=== PATIENT | male | born 1995 | race Caucasian/White ===

== ENCOUNTER 2024-11-15 19:04 | Emergency (ER) | payer BC, OTHER, SELFPAY ==
[2024-11-15 20:00] VITALS: BP 122/77; PULSE 84; RESP 20; TEMP 36.6; O2SAT 100; BMI 19.0
--- OUTSIDE RECORDS SUMMARY | 2024-11-15 20:02 | XMS_ITS | Clinical Summary ---
Author Organization [facility] Address [address] [place] [address] Care Team Providers Care Back Up Worker Name Role Phone Celestina Smalls M.D., Kush Zavaleta Primary Care Provi [facility] Source Comments [facility] is fully rolled out with thefollowing exceptions:General Clinical Research [facility] Allergies No known active allergies Medications No known medications Active Problems Problem Noted Date Diagnosed Date Varicocele 05/23/2015 Hematuria 05/23/2015 Left groin pain 05/23/2015 General abdominal pain-symptom 03/04/2008 Voiding pain 03/04/2008 Family History Medical History Relation Name Comments Cancer Maternal Aunt Heart Problems Maternal Grandfather High Blood Pressure Maternal Grandfather High Blood Pressure Maternal Grandmother Heart Problems Mother High Blood Pressure Paternal Grandfather Anemia Paternal Grandmother High Blood Pressure Paternal Grandmother Relation Name Status Comments Father Alive Maternal Aunt Alive Maternal Grandfather Alive Maternal Grandmother Alive Mother Alive Paternal Grandfather Alive Paternal Grandmother Alive Sister Alive Social History Tobacco Use Types Packs/Day Years Used Date Smoking Tobacco: Some Days Sex and Gender Information Value Date Recorded Sex Assigned at Not on file Legal Sex Male 5:29 AM EST Gender Identity Not on file Sexual Orientation Not on file Last Filed Vital Signs Vital Sign Reading Time Taken Comments Blood Pressure 118/68 05/23/2015 10:05 AM EST Pulse 56 05/23/2015 10:05 AM EST Temperature - - Respiratory Rate - - Oxygen Saturation - - Inhaled Oxygen Concentration - - Weight 55.8 kg (123 lb 0.3 oz) 05/23/2015 10:05 AM EST Height 139.6 cm (4' 6.96 ) 05/27/2008 9:50 AM ES T Body Mass Index - - Plan of Treatment Health Maintenance Due Date Last Done Comments MMR IMMUNIZATION (1 of 1 - S tandard series) 11/15/1995 DTAP/Tdap/Td IMMUNIZATION (1 - Tdap) 2001 VARICELLA IMMUNIZATION (1 of 2 - 13+ 2-dose series) 11/15/2007 HEPATITIS B IMMUNIZATION (1 of 3 - 19+ 3-dose series) 2013 COVID-19 Vaccine ( - 2023-2 5 season) 2023 AMB SEASONAL FLU VACCINE (#1) 12/27/2024 HIB IMMUNIZATION Aged Out No longer e ligible based on patient's age to complete this topic HPV IMMUNIZATION Aged Out No longer e ligible based on patient's age to complete this topic IPV IMMUNIZATION Aged Out No longer e ligible based on patient's age to complete this topic MCV4 IMMUNIZATION Aged Out No longer eligible based on patient's age to complete this topic MENINGOCOCCAL B VACCINE Aged Out No l onger eligible based on patient's age to complete this topic PNEUMOCOCCAL IMMUNIZATION Aged Out No longer eligible based on patient's age to complete this topic Respiratory Syncytial Virus (RSV) <20mo Aged Out No longer eligible b ased on patient's age to complete this topic Insurance [employer] NON-TRADITIONAL Care Teams Back Up Worker Relationship Specialty Start Date End Date Kush Oscar Jr., M.D. [facility] [address] [place] [address] PCP - General 02/24/08
--- OUTSIDE RECORDS SUMMARY | 2024-11-15 20:02 | XMS_ITS | Clinical Summary ---
[facility] Address [address] [place] [address] Care Team Providers Care Representative Phlebotomy Services Name Role Phone Elier Morales MD Primary Care Provider [phone] Allergies No known active allergies Social History Tobacco Use Types Packs/Day Years Used Date Smoking Tobacco: Never Assessed Abuse Screen Answer Date Recorded Unsafe at Home or Work/School Not on file Feels Threatened by Someone? Not on file 02/2023 Does Anyone Keep You from Co ntacting Others or Doint Things Outside the Home? Not on file 02/05/2023 Physical Sign of Abuse Present Not on file 1 Housing Stability Answer Date Recorded Current Living Arrangements Not on file 01/26 Potentially Unsafe Housing Conditions Not on betty e 02/05/2023 Family and Community Support Answer Tee e Recorded Help with Day-to-Day Activities Not on file 02/05/2023 Lonely or Isolated Not on file 02/05/2023 Employment Answer Date Recorded Do you want help finding or keeping work or a latha b? Not on file 02/05/2023 Disabilities Answer Date Recorded Concentrating, Remembering, or Making Decisions Difficulty Not on file 02/05/2023 Doing Errands Independently Difficulty Not on fi le 02/05/2023 Education Answer Date Recorded Help with school or training? Not on file Preferred Language Not on file 02/05/2023 Sex and Gender Information Value Date Recorded Sex Assigned at Not on file Legal Sex Male 1:17 PM EDT Gender Identity Not on file Sexual Orientation Not on file Last Filed Vital Signs Vital Sign Reading Time Taken Comments Blood Pressure 122/82 01/21/2017 9:25 AM EDT Pulse - - Temperature 36.9 C (98.4 F) 01/21/2017 9:25 AM EDT Respiratory Rate - - Oxygen Saturation 98% 01/21/2017 9:25 AM EDT Inhaled Oxygen Concentration - - Weight - - Height - - Body Mass Index - - Plan of Treatment Health Maintenance Due Date Last Done Comments TDAP/TD VACCINES (1 - Tdap) 2013 ANNUAL PHYSICAL 01/21/2017 HEPATITIS C SCREENING 01/21/2017 COVID-19 Vaccine ( - 2023-2 5 season) 2023 INFLUENZA VACCINE 01/26/2025 Pneumococcal Vaccine 0-49 Aged Out No longer eligible based on patient's age to complete this topic Insurance PPO Care Teams Representative Phlebotomy Services Relationship Specialty Start Date End Date Elier Morales MD [address] [facility] [address] [place] [address] PCP - General Adolescent Medicine 01/17/17
--- OUTSIDE RECORDS SUMMARY | 2024-11-15 20:02 | XMS_ITS | Clinical Summary ---
Author Organization [facility] [place] [place] [address] Care Team Providers Care Residential Real Estate Assistant Name Role Phone Unavailable Primary Care Provider Unavailabl e Social History Tobacco Use Types Packs/Day Years Used Date Smoking Tobacco: Never Assessed Sex and Gender Information Value Date Recorded Sex Assigned at Not on file Legal Sex Male 8:46 AM EDT Gender Identity Not on file Sexual Orientation Not on file Plan of Treatment Health Maintenance Due Date Last Done Comments Annual Wellness Exam 1997 DTaP/TDaP/Td (1 - Tdap) 2013 Hepatitis B Vaccine (1 of 3 - 19+ 3-dose series) 2013 COVID-19 Vaccine (2023-2 5 season) 2023 Influenza Vaccine (#1) 2024 Meningococcal B Vaccine Aged Out No l onger eligible based on patient's age to complete this topic Pneumococcal Vaccine 0-49 Aged Out No longer eligible based on patient's age to complete this topic
--- OUTSIDE RECORDS SUMMARY | 2024-11-15 20:02 | XMS_ITS | Clinical Summary ---
Author Organization [facility] Address [address] [place] [address] Care Team Providers Care Tilt Wall Supervisor Name Role Phone Elier Morales MD Primary Care Provider [phone] Family History Medical History Relation Name Comments Cardiac disorder Other Relation Name Status Comments Other Social History Tobacco Use Types Packs/Day Years Used Date Smoking Tobacco: Passive Smo ke Exposure - Never Smoker Sex and Gender Information Value Date Recorded Sex Assigned at Not on file Legal Sex Male 7:42 PM EDT Gender Identity Not on file Sexual Orientation Not on file Last Filed Vital Signs Vital Sign Reading Time Taken Comments Blood Pressure - - Pulse - - Temperature - - Respiratory Rate - - Oxygen Saturation - - Inhaled Oxygen Concentration - - Weight 52 kg (114 lb 10.2 oz) 01/11/2014 10:57 A M EDT Height 168.4 cm (5' 6.3 ) 01/11/2014 10:57 AM ED T Body Mass Index 18.34 01/11/2014 10:57 AM EDT Plan of Treatment Not on file Care Teams Tilt Wall Supervisor Relationship Specialty Start Date End Date Elier Morales MD [address] [place] [address] PCP - General 09/08/20
--- NOTE | 2024-11-15 20:37 | ED_ITS ---
<Statement entered by Corey Byrd MD - 11/16/24 13:51> I was consulted by the KAYDEN, and we discussed the complexity of the problems being addressed. I approved the treatment and management plan for this patient's care in the emergency department, thus performing a substantive portion of the medical decision making. Corey Byrd MD Discharge Plan Disposition Patient Disposition: Home, Self-Care Condition: Good Prescriptions Prescriptions: No Action cetirizine [Zyrtec] 10 mg tablet 10 mg PO DAILY PRN Referrals Follow up/Referrals: Pedro Cole II, MD [Staff Physician, Gastroenterology] - See instructions Flora Dukes APRN [Primary Care Provider, Medical] - See instructions Activity Restrictions/Add. Instructions Additional Instructions/Restrictions: As we discussed please follow the disimpaction sheet and then once you have done that start taking MiraLAX 1 capful a day. I referred you back to Dr. Cole. Please call tomorrow to make your appointment. If you have any new or worsening signs or symptoms please return to the ER as needed. Clinical Impressions Clinical Impression: Bright red blood per rectum Instructions Patient Instructions: DI for Gastrointestinal Bleeding Print Language Print Language: Sinhala Discharge ED Provider: Corey Byrd General Adult HPI General Chief complaint: GI Bleed Stated complaint: bloody stool Time Seen by Provider: 11/15/24 20:02 Mode of Arrival: Ambulatory Source of Information: Patient Description of Symptoms (Recalled from ER Triage Doc. by RN): patient c/o rectal bleeding x2 today. patient states it was bright red. denies history. History of Present Illness HPI narrative: Patient presents for evaluation of bright red blood per rectum. Patient states that he had a bowel movement this morning and noted bright red blood in the toilet. He actually has no pain in the rectum or the abdomen. He has not had any other bleeding since. Patient states he does have fairly hard stools and has had for a long time. Patient's mother who is present with him states that had an anal fissure previously when he was a child. Patient denies fever chills hemoptysis hematochezia melena hematemesis. Related Data Home Medications ?Medication ?Instructions ?Recorded ?Confirmed cetirizine 10 mg tablet (Zyrtec) 10 mg PO DAILY PRN 10/02/23 Allergies Allergy/AdvReac Type Severity Reaction Status Date / Time No Known Allergies Allergy Verified 10/02/23 14:14 [facility] Disclaimer: The information contained in this section may have been updated after the patient was seen, as this information can be updated by other users. Medical History (Updated 11/15/24 @ 21:00 by ASHELY Ramirez) Heart murmur Surgical History (Updated 10/02/23 @ 14:18 by Ann Marie Esparza MA) Hx of appendectomy Social History Smoking Status: Never smoker alcohol intake: never current occupational status: employed Travel in the last 8 weeks?: None housing: house Have you lived/traveled outside US in past 30 days?: No Contact w/someone who lives/traveled outside US past 30 days?: No Exposure to someone with infectious disease in past 14 days?: No Do you have a fever (greater than 100.4 F or 38 C)?: No Have you tested positive for COVID-19?: No Exposed to someone with COVID-19 in past 14 days?: No Do you have a sore throat?: No Do you have a cough?: No Do you have any weakness?: No Do you have any diarrhea?: No Are you experiencing any unusual bleeding?: No Do you have any muscle aches/pain?: No Do you have any abdominal pain?: No Are you experiencing loss of taste or smell?: No Other Medical History Have you received the Pneumonia Vaccine: No ROS Obtained: Yes Systems reviewed as appropriate & no additional complaints except as documented Physical Exam General General appearance: alert and in no apparent distress Respiratory Respiratory exam: Present normal lung sounds bilaterally Cardiovascular Cardiovascular exam: Present regular rate Neurological Exam Neurological exam: Present alert and oriented X3 Medical Decision Making Medical Records Medical records reviewed: Yes I reviewed the patient's medical records. Screening: Per USPSTF and CDC recommendations, given the prevalence of disease in our region, it is our hospital?s policy to screen for HIV and viral Hepatitis for all patients aged 18 and over and those with ongoing risk factors. Dylan Inquiry Pt receiving controlled substance: No Vital Signs: 11/15/24 20:00 11/15/24 21:07 Temperature 98 F 98.1 F Temperature Source Oral Oral Pulse Rate 89 Pulse Rate [Left] 84 Respiratory Rate 20 20 Blood Pressure 120/71 Blood Pressure [Right Arm] 122/77 Blood Pressure Mean [Right Arm] 92 Blood Pressure Source Automatic Cuff Blood Pressure Source [Right Arm] Automatic Cuff Blood Pressure Position Sitting Blood Pressure Position [Right Arm] Sitting 02 Sat by Pulse Oximetry 100 Oxygen Delivery Method Room Air Room Air Medical Decision Narrative: In summary patient is a 29-year-old male who presents to the emergency department for evaluation of bright red blood per rectum. Patient is hemodynamically stable upon arrival, afebrile. Physical exam is remarkable for normal external rectal exam but patient does have a pile that is not enlarged or engorged from likely previous hemorrhoid. Patient has a severalg mucosal tears in the anterior aspect of the rectal ring along with some dried blood but no active bleeding currently. Digital rectal exam reveals however no muscle tear or palpable internal hemorrhoids.. Differential diagnosis includes constipation with defecation trauma versus possible internal hemorrhoid. Initial workup was considered with labs and imaging however patient has no red flags to indicate alternative diagnosis so they were not pursued.. Given this I went over recommendations for bowel disimpaction and then bowel softening regimen. Patient verbalized understanding and agreement. Patient will be referred to gastroenterology for ongoing management care. Patient given strict return precautions. Critical Care Critical Care Time Critical Care Time: No
[2024-11-15 21:07] VITALS: BP 120/71; PULSE 89; RESP 20; TEMP 36.7; O2SAT 100
--- NOTE | 2024-11-15 21:08 | PC.NURSE ---
IV discontinued. Catheter tip intact. Bleeding controlled.
== END 2024-11-15 21:08 | disposition home or self-care (01) ==
PROVIDERS: Emergency Provider Emergency Medicine; PCP Nurse Practitioner
DX: K62.5 Hemorrhage of anus and rectum (principal)
CPT/HCPCS: 99283

== ENCOUNTER 2024-11-22 11:41 | Outpatient (CLI) | payer BC, OTHER, SELFPAY ==
[2024-11-22 17:14] LABS: Hematocrit 42.7 % (42.0-52.0); Hemoglobin 13.8 g/dL (14.1-18.0); Immature Granulocytes % 0.3 %; Mean Corpuscular HGB Conc 32.3 g/dL (31.8-35.4); Mean Corpuscular Hemoglobin 27.2 pg (27.0-31.2); Mean Corpuscular Volume 84.2 fl (80-94); Nucleated Red Blood Cells % 0 %; Platelet Count 214 K/mm3 (142-424); Red Blood Count 5.07 M/mm3 (4.60-6.20); Red Cell Distribution Width-SD 38.1 fL; White Blood Count 3.8 K/mm3 (4.8-10.8)
[2024-11-22 19:39] LABS: Hepatitis C Ab Qual. W/ RFX NEGATIVE (Negative)
[2024-11-23 05:33] LABS: Hepatitis B Surface Antigen Negative (Negative)
--- OUTSIDE RECORDS SUMMARY | 2024-11-23 12:31 | XMS_ITS | Clinical Summary ---
Author Organization [facility] Address [address] [place] [address] Care Team Providers Care Bench Assembler Operator Name Role Phone Celestina Smalls M.D., Kush Zavaleta Primary Care Provi [facility] Source Comments [facility] is fully rolled out with thefollowing exceptions:General Clinical Research [facility] Allergies No known active allergies Medications No [...] topic Insurance [employer] NON-TRADITIONAL Care Teams Bench Assembler Operator Relationship Specialty Start Date End Date Kush Oscar Jr., M.D. [facility] [address] [place] [address] PCP - General 02/24/08
--- OUTSIDE RECORDS SUMMARY | 2024-11-23 12:31 | XMS_ITS | Clinical Summary ---
Author Organization [facility] [place] [address] Care Team Providers Care University Demonstrator Name Role Phone Unavailable Primary Care Provider [...]
--- OUTSIDE RECORDS SUMMARY | 2024-11-23 12:31 | XMS_ITS | Clinical Summary ---
Author Organization [facility] Address [address] [place] [address] Care Team Providers Care Mixer Foam Rubber Name Role Phone Elier Morales MD Primary Care Provider [phone] Family History Medical History Relation Name Comments [...] of Treatment Not on file Care Teams Mixer Foam Rubber Relationship Specialty Start Date End Date Elier Morales MD [address] [place] [address] PCP - General 09/08/20
--- OUTSIDE RECORDS SUMMARY | 2024-11-23 12:31 | XMS_ITS | Clinical Summary ---
[facility] Organization [facility] Address [address] [place] [address] Care Team Providers Care Butcher'S Assistant Name Role Phone Elier Morales MD Primary Care Provider [phone] Allergies No known active allergies Social History [...] complete this topic Insurance PPO Care Teams Butcher'S Assistant Relationship Specialty Start Date End Date Elier Morales MD [address] [facility] [address] [place] [address] PCP - General Adolescent Medicine 01/17/17
== END 2024-11-22 23:59 | disposition home or self-care (01) ==
LOC: LAB.DROPOF 11-23 12:29
PROVIDERS: PCP Family Medicine; Visit Provider Family Medicine
DX: K62.5 Hemorrhage of anus and rectum (principal); Z11.59 Encounter for screening for other viral diseases; Z11.4 Encounter for screening for human immunodeficiency virus [HIV]; R53.83 Other fatigue
CPT/HCPCS: 80074; 85025; 87340; 87389